=== PATIENT | male | born 1955 | race Caucasian/White ===

== ENCOUNTER 2022-08-07 12:07 | Outpatient (CLI) | payer MEDICARE, OTHER | END 2022-08-07 12:08 | disposition home or self-care (01) | LOC: CSHCT 12:07 | PROVIDERS: ATTEND Otolaryngology Plastic Surgery within the Head & Neck | DX: H90.3 Sensorineural hearing loss, bilateral (principal); Z96.21 Cochlear implant status | CPT/HCPCS: 70480 ==

== ENCOUNTER 2022-08-21 11:31 | Outpatient (CLI) | payer MEDICARE, OTHER ==
[2022-08-21 13:17] LABS: Hemoglobin 16.1 g/dL (13.5-17.5)
[2022-08-21 13:36] LABS: Anion Gap 16 mmol/L (10-20); BUN (Urea Nitrogen) 14 mg/dL (8.4-25.7); Calc. Creatinine Clearance 0 mL/min (70-130); Calcium 9.6 mg/dL (7.8-10.44); Carbon Dioxide 23 mmol/L (23-31); Chloride 104 mmol/L (98-107); Estimated GFR 77; Glucose 100 mg/dL (80-115); Sodium 139 mmol/L (136-145)
== END 2022-08-21 11:32 | disposition home or self-care (01) ==
LOC: CSHLAB 11:31
PROVIDERS: ATTEND Otolaryngology Plastic Surgery within the Head & Neck
DX: Z01.818 Encounter for other preprocedural examination (principal); H90.3 Sensorineural hearing loss, bilateral
CPT/HCPCS: 80048; 85014; 85018; 93005; 93010

== ENCOUNTER 2024-01-30 11:26 | Outpatient (CLI) | payer MEDICARE, OTHER ==
[2024-01-30 13:20] LABS: Hematocrit 44.4 % (38.8-50.0); Hemoglobin 15.5 g/dL (13.5-17.5); Mean Corpuscular HGB CONC 34.9 g/dL (32.0-36.0); Mean Corpuscular Hemoglobin 30.2 pg (27.0-33.0); Mean Corpuscular Volume 86.4 fl (81.2-95.1); Platelet Count 201 10x3/uL (150-450); RBC Distribution Width 12.4 % (11.5-14.5); Red Blood Cell (RBC) Count 5.14 10x6/uL (4.32-5.72); White Blood Cell (WBC) Count 5.5 10x3/uL (3.5-10.5)
[2024-01-30 13:37] LABS: Anion Gap 12 mmol/L (10-20); BUN (Urea Nitrogen) 18 mg/dL (8.4-25.7); Calc. Creatinine Clearance 0 mL/min (70-130); Calcium 9.5 mg/dL (7.8-10.44); Carbon Dioxide 26 mmol/L (23-31); Chloride 103 mmol/L (98-107); Estimated GFR 74; Glucose 108 mg/dL (80-115); Potassium 4.3 mmol/L (3.5-5.1); Sodium 137 mmol/L (136-145)
== END 2024-01-30 11:27 | disposition home or self-care (01) ==
LOC: CSHLAB 11:26
PROVIDERS: ATTEND Otolaryngology Plastic Surgery within the Head & Neck
DX: Z01.818 Encounter for other preprocedural examination (principal); Z96.21 Cochlear implant status; T85.9XXS Unspecified complication of internal prosthetic device, implant and graft, sequela; H90.3 Sensorineural hearing loss, bilateral
CPT/HCPCS: 80048; 85027; 93005; 93010

== ENCOUNTER 2024-03-27 09:26 | Outpatient (CLI) | payer MEDICARE, OTHER | END 2024-03-27 09:27 | disposition home or self-care (01) | LOC: CSHCT 09:26 | PROVIDERS: ATTEND Orthopaedic Surgery | DX: Z01.818 Encounter for other preprocedural examination (principal); M17.12 Unilateral primary osteoarthritis, left knee ==